=== PATIENT | female | born 1945 | race African-American/Black ===

== ENCOUNTER 2016-09-24 09:06 | Emergency (ER) | payer OTHER ==
[~2016-09-24] VITALS: Ht 160 cm; Wt 104.8 kg
[~2016-09-24 09:06] MED LIST: ACETAMINOPHEN325 M1 PO; AMLODIPINE BESY10 MG PO; ASPIRIN EC81 M1 PO; CARBIDOPA-LEVO1 EAC9 PO; COLACE100 MG PO; DEPAKOTE ER500 MG PO; DIOVAN HCT 3201 EACH PO; FIORICET 50-321 EACH; HYDROXYZINE HCL25 M1 PO; KEPPRA 500 MG500 M1 PO; LEVOTHYROXINE0.05 MG PO; LIDODERM 5%1 PATC1 TRANSDERM; LIPITOR 20 MG T20 M1 PO; NAPROSYN500 MG PO; NEURONTIN 300M300 M2 PO; NORVASC10 MG PO; OMEPRAZOLE 20 M20 MG PO; OMEPRAZOLE20 M2 PO; PLAVIX 75 MG TA75 MG PO; POTASSIUM99 M1 PO; SIMVASTATIN40 MG PO; VITAMIN D1000 UNI1 PO
[2016-09-24] MEDS ORDERED: TYLENOL325 MG PO (09:22)
[2016-09-24] MEDS ORDERED: HYDROCODONE-AP1 EAC6 PO (09:31)
[2016-09-24 09:52] LABS: ABSOLUTE NEUTROPHILS 4.5 thou/uL (1.4-8.2); BASOPHILS 0.5 % (0.0-2.0); EOSINOPHILS 0.7 % (0.0-3.0); HEMATOCRIT 30.8 % (37.0-47.0); HEMOGLOBIN 10.1 gm/dL (12.0-15.0); LYMPHOCYTES 17.3 % (24.0-44.0); MCH 27.5 pg (26.0-34.0); MCHC 32.7 g/dL (28.0-37.0); MCV 84.3 fL (80.0-100.0); MONOCYTES 9.4 % (1.0-8.0); PLATELET COUNT 194 thou/uL (150-400); POLYS 72.1 % (36.0-66.0); RBC 3.66 mil/uL (4.20-5.00); RDW 16.7 % (10.5-14.5); WBC 6.2 thou/uL (4.0-11.0)
[2016-09-24 09:56] LABS: MANUAL DIFF NO
[2016-09-24 09:58] LABS: CALCIUM 8.2 mg/dL (8.5-10.1); CREATININE 0.8 mg/dL (0.6-1.3); POTASSIUM 3.3 mmol/L (3.5-5.1)
[2016-09-24 10:02] LABS: URINE BILIRUBIN NEGATIVE (Negative); URINE BLOOD NEGATIVE (Negative); URINE COLOR YELLOW; URINE GLUCOSE-RANDOM* NEGATIVE (Negative); URINE KETONES NEGATIVE (Negative); URINE LEUKOCYTES-REFLEX NEGATIVE (Negative); URINE PROTEIN (DIPSTICK) NEGATIVE (Negative); URINE SPECIFIC GRAVITY 1.015 (1.003-1.035); URINE UROBILINOGEN 0.2 E.U./dl (0.2-1.0)
[2016-09-24 10:03] LABS: ALBUMIN 2.6 g/dL (3.4-5.0); TOTAL BILIRUBIN 0.4 mg/dL (<0.1-1.0); TOTAL PROTEIN 6.5 g/dL (6.4-8.2)
[2016-09-24] MEDS ORDERED: SENOKOT-S1 TA1 PO (11:38)
[2016-09-24] MEDS ORDERED: ONDANSETRON HCL4 M2 PO (11:38)
== END 2016-09-24 13:21 | disposition home or self-care (01) ==
LOC: ER 09:06
PROVIDERS: Physician Assistant
DX: K59.00 Constipation, unspecified (principal); E86.0 Dehydration; E87.6 Hypokalemia; E87.2 Acidosis; I10 Essential (primary) hypertension; E78.00 Pure hypercholesterolemia, unspecified; M19.90 Unspecified osteoarthritis, unspecified site; Z88.5 Allergy status to narcotic agent; Z88.0 Allergy status to penicillin; Z88.2 Allergy status to sulfonamides; Z88.8 Allergy status to other drugs, medicaments and biological substances; Z86.73 Personal history of transient ischemic attack (TIA), and cerebral infarction without residual deficits